=== PATIENT | male | born 1995 | race Caucasian/White ===

== ENCOUNTER 2020-11-22 21:44 | Emergency (ER) | payer OTHER, SELFPAY | END 2020-11-22 23:26 | disposition home or self-care (01) | LOC: ERS 21:44 | DX: G44.209 Tension-type headache, unspecified, not intractable (principal); F17.210 Nicotine dependence, cigarettes, uncomplicated; V69.40XA Driver of heavy transport vehicle injured in collision with unspecified motor vehicles in traffic accident, initial encounter | CPT/HCPCS: 70450; 72125 ==